=== PATIENT | male | born 1960 | race Caucasian/White ===

== ENCOUNTER → 2017-02-21 | Outpatient (CLI) | payer BC ==
--- NOTE | 2017-02-21 08:26 | MR ---
EXAMINATION TYPE: MR lumbar spine wo/w con DATE OF EXAM: 02/21/2017 COMPARISON: MRI lumbar spine July 20, 2014 HISTORY: radiculopathy lumbar region per order. Left greater than right leg pain for 6 months per pat ient. History of back surgery 2.5 years ago. TECHNIQUE: Multiplanar, multisequence images of the lumbar spine is performed without and with IV contrast, util izing 20 mL intravenous MultiHance FINDINGS: Sagittal images of the lumbar spine show vertebral body heights to appear satisfactory. The re is persistent disc desiccation with mild disc space narrowing L2-L3 and L3-L4 levels. There is per sistent moderate disc space narrowing and disc desiccation L5-S1 level. There is slight grade 1 retro listhesis of L5 on S1 redemonstrated measured 5 mm from posterior vertebral body margin. The conus m edullaris is normal in position and signal ending at inferior L1 level. The bone marrow signal inten sity is within normal limits. No significant spurring is seen. No suspicious postcontrast enhancement is noted. Axial images show the T12-L1 and L1-L2 levels to remain within normal limits. Axial images at L2-L3 level redemonstrate mild broad disc bulge effacing anterior thecal sac on axial image 18. Bilateral neural foramina remain patent. Axial images at L3-L4 level redemonstrate posterior increased signal consistent with annular tear and broad disc bulge with small left paracentral disc protrusion component mildly effacing anterior thec al sac on axial image 13, bilateral neural foramina remain patent. Axial images at L4-L5 level show mild facet degenerative changes bilaterally. There is central disc p rotrusion minimally effacing anterior thecal sac. Bilateral neural foramina remain patent. No signifi cant change from prior. Axial images at L5-S1 level show mild facet degenerative changes bilaterally. There is interval impro vement in left paracentral disc protrusion after surgery as there is new left-sided laminectomy defec t identified. Spinal canal is preserved on current study. Bilateral neural foramina redemonstrate mil d narrowing bilaterally due to spondylolisthesis. No suspicious retroperitoneal findings are seen. No abnormal enhancement is present. IMPRESSION: Interval successful surgery L5-S1 level with improvement in focal eccentric disc herniati on. Multilevel degenerative changes in the mid to lower lumbar spine remain present as detailed above without significant change.
== END | disposition home or self-care (01) ==
LOC: RADMRIMAIN 05:35
PROVIDERS: ATTEND Family Medicine
DX: M51.17 Intervertebral disc disorders with radiculopathy, lumbosacral region (principal); M47.816 Spondylosis without myelopathy or radiculopathy, lumbar region
CPT/HCPCS: 72158; A9577

== ENCOUNTER → 2020-04-03 | Outpatient (CLI) | payer BC ==
--- NOTE | 2020-04-03 10:04 | XR ---
EXAMINATION TYPE: XR chest 2V DATE OF EXAM: 04/03/2020 HISTORY: Shortness of breath. COMPARISON: None. TECHNIQUE: Single view of the chest is submitted. FINDINGS: Demonstrated are scattered senescent parenchymal change. There is no evidence for focal infiltrate. The heart is stable. Hilar and mediastinal structures are within normal limits. Degenerative changes are seen of the dorsal spine. IMPRESSION: 1. Chronic changes without evidence for acute pulmonary disease.
== END | disposition home or self-care (01) ==
LOC: LABWHC1 09:45
PROVIDERS: ATTEND Family Medicine
DX: Z01.818 Encounter for other preprocedural examination (principal)
CPT/HCPCS: 71046